=== PATIENT | male | born 1995 | race Caucasian/White ===

== ENCOUNTER 2017-09-17 07:13 | Emergency (ER) | payer OTHER ==
[~2017-09-17] VITALS: Ht 175.3 cm; Wt 169.2 kg
[2017-09-17 07:18] VITALS: BP_SYST 101
[2017-09-17] MEDS ORDERED: NACL 0.9% 1,000 ML IV ONE (07:30)
[2017-09-17] MEDS ORDERED: ALBUTEROL SULFATE 0.083% 2.5 MG/3 ML VIAL.NEB IH ONE (08:00)
[2017-09-17] MEDS ORDERED: prednisoLONE 15 MG/5 ML UDC PO ONE (08:00)
[2017-09-17] MEDS ORDERED: IPRATROPIUM BROM 0.5 MG/2.5 ML VIAL.NEB (ATROVENT) IH ONE (08:00)
[2017-09-17 08:58] VITALS: BP_SYST 107
== END 2017-09-17 08:58 | disposition home or self-care (01) ==
LOC: SED 07:13
DX: J18.9 Pneumonia, unspecified organism (principal); Z88.0 Allergy status to penicillin
CPT/HCPCS: 93005; 94640; 96360; 99284; J7030

== ENCOUNTER 2023-01-17 05:55 | Emergency (ER) | payer BC, OTHER ==
[2023-01-17 06:10] VITALS: BP_SYST 130
--- NOTE | 2023-01-17 06:10 | NUR ---
PT BIB SELF FROM HOME, AMBULATED TO BED 7. PT A&Ox4, ABLE TO MAKE NEEDS KNOWN. PT C/O SORE THROAT X1 WEEK. PT STATES HE NOTICED A "HOLE" IN RIGHT TONSIL YESTERDAY. PT RATES PAIN 2-3/10. PT DENIES DIFFICULTY SWALLOWING. PT DENIES FEVER/CHILLS, SOB AND CHEST PAIN. PT DENIES N/V/D. PT STATES HE TOOK FLONASE YESTERDAY. PT STATES HAS HISTORY OF STREPT THROAT AND THROAT INFECTIONS. SAFETY MEASURES IN PLACE.
--- NOTE | 2023-01-17 06:15 | NUR ---
Patient to ER bed 7 to gown for evaluation. Side rails up. Report given to radha maria.
--- NOTE | 2023-01-17 06:18 | NUR ---
ER at bedside examining patient.
[2023-01-17] MEDS ORDERED: ZIT250 PO (06:23)
[2023-01-17] MEDS ORDERED: PRED50TA PO (06:23)
--- NOTE | 2023-01-17 06:29 | NUR ---
Patient given written and verbal discharge instructions and verbalizes understanding. ER DR MALLYO discussed with patient the results and treatment provided. Patient in stable condition. ID arm band removed. Rx of PREDNISONE AND ZITHROMAX given. Patient educated on pain management and to follow up with PMD. Pain Scale 2/10. Opportunity for questions provided and answered. Medication side effect fact sheet provided.
[2023-01-17 06:33] VITALS: BP_SYST 130
[2023-01-19] MEDS ORDERED: ONDA8TAB60 PO (08:20)
== END 2023-01-17 06:29 | disposition home or self-care (01) ==
LOC: SED 05:55
DX: J03.90 Acute tonsillitis, unspecified (principal); Z88.0 Allergy status to penicillin; Z79.899 Other long term (current) drug therapy
CPT/HCPCS: 99283